=== PATIENT | male | born 1990 | race African-American/Black ===

== ENCOUNTER 2018-07-21 13:11 | Emergency (ER) | payer OTHER ==
[~2018-07-21] VITALS: Ht 170.2 cm; Wt 63.5 kg
== END 2018-07-21 16:15 | disposition home or self-care (01) ==
LOC: ER 13:11
DX: T65.894A Toxic effect of other specified substances, undetermined, initial encounter (principal); R07.89 Other chest pain; H57.13 Ocular pain, bilateral; R07.0 Pain in throat; J34.89 Other specified disorders of nose and nasal sinuses; R51 Headache; Y92.813 Airplane as the place of occurrence of the external cause